=== PATIENT | female | born 1970 | race Caucasian/White ===

== ENCOUNTER 2016-05-15 11:31 | Observation (INO) | payer BC, OTHER ==
--- NOTE | ~2016-05-15 | OP ---
Record Of Operation [facility] [address] [place]. [address] NAME: DELIA PRATER : 66 STATUS : ADM Azalea PAT#: [id number] AGE: 45 ADM/REG DATE : 05/15/16 MR#: [id number] REPORT SERV DATE: 05/16/16 DICTATED BY: CHRIST CARTY DATE: 05/15/16 REPORT STATUS : Draft TRANSCRIBED BY: MODL DATE: 05/15/16 DATE OF PROCEDURE: PROCEDURE: EGD with PEG tube placement. 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 MEDICATIONS: Propofol. SUPERVISOR FLESHING: Christ Carty M.D. COMPLICATIONS: None. HISTORY: See history and physical from 05/11/2016 for details. Family has agreed to PEG tube placement. The potential risks and limitations were reviewed including bleeding, medication reaction, perforation, or infection. Prophylactic vancomycin 1 g was given before the procedure. FINDINGS: Limited endoscopic examination of the esophagus, stomach, duodenal was performed including a retroflex view of the GE junction. There were no significant structural abnormalities. There was no evidence of gastric outlet obstruction. A site for PEG tube placement was selected by transillumination and finger compression, and 24-Italian gastrostomy tube was placed via the push technique. The polyp. The patient tolerated the procedure well. There was no significant bleeding at the end of the procedure. IMPRESSION: Aphasia, due to Rett syndrome, status post placement of a 24-Italian gastrostomy tube. RECOMMENDATIONS: 1. We will go ahead and begin Jevity 1.2 tube feedings continuously. 2. We will have the nutrition service see to give orders for bolus tube feedings at home with hospice, who is already involved in her care. 3. Continue home medications. /MODL Christ Carty M.D. / [id number] CC: Ta Velasquez NP
[~2016-05-15 11:31] MED LIST: AMBIEN CR12.5 MG PO; AMITIZA8 MCG PO; BROVANA15 MCG INH; CALTRA600D PO; CENTRUM LIQUID; CITRACAL PO; DEPAKOT250 PO; DEPAKOT500 PO; DSS PO; FISH OIL300 MG PO; FISH-EPA1000 MG PO; GENTEA1 OP; LEVOTHYROXIN25 MCG PO; LIOR10 PO; LOPID6 PO; MIRALAXPKT PO; MUCUS RELIEF PO; MULTIPLE VIT PO; OMEGA RED; OS500 PO; OYST-CAL500 MG PO; PCET PO; PREM.3B PO; PROTONIX PO; PULRESP.25 INH; RISPERDAL0.25 MG PO; SEROQUEL XR150 MG PO; SEROQUEL1C PO; SEROQUEL25 PO; SEROQUEL300 MG PO; TYLENOL ARTH650 MG PO; ULTRAM50 PO; VITAMINS; VITD PO; VITE PO; [UNRECOGNIZED DRUG - OTHER]; [UNRECOGNIZED DRUG - OTHER] INH; [UNRECOGNIZED DRUG - SUPPLY]
[2016-05-15] MEDS ORDERED: SENTAB PO (17:47)
[2016-05-15] MEDS ORDERED: PRILO PO (17:52)
[2016-05-15] MEDS ORDERED: MAXIMUM D3 PO (17:55)
== END 2016-05-16 12:41 | disposition home or self-care (01) ==
LOC: DMU 11:31 → SDC/OF 13:55 → 5SO 15:46
PROVIDERS: Internal Medicine Gastroenterology
PROC: 0DH63UZ Insertion of Feeding Device into Stomach, Percutaneous Approach (ICD-10-PCS; principal; 2016-05-15 12:30)
DX: F84.2 Rett's syndrome (principal); K21.9 Gastro-esophageal reflux disease without esophagitis; G40.909 Epilepsy, unspecified, not intractable, without status epilepticus; E03.9 Hypothyroidism, unspecified; M81.0 Age-related osteoporosis without current pathological fracture; E78.5 Hyperlipidemia, unspecified; Z90.710 Acquired absence of both cervix and uterus; Z98.890 Other specified postprocedural states; Z79.899 Other long term (current) drug therapy; Z88.0 Allergy status to penicillin; Z90.49 Acquired absence of other specified parts of digestive tract
CPT/HCPCS: 96374; A9270-GY; C9113; G0378; J3370